=== PATIENT | female | born 1960 | race Caucasian/White ===

== ENCOUNTER 2019-05-21 14:39 | Emergency (ER) | payer OTHER ==
[~2019-05-21] VITALS: Ht 157.5 cm; Wt 65.8 kg
[~2019-05-21 14:39] MED LIST: ADULT LOW DOSE81 MG; FLEXERIL PO; HYDROCODON-ACE1 EAC7 PO; LIPITOR20 MG; PROZAC 20 MG20 M1 PO; SAVELLA50 MG PO; TOPAMAX100 MG PO
[2019-05-21] MEDS ORDERED: LEVO-T75 MCG PO (14:47)
[2019-05-21] MEDS ORDERED: VITAMIN B-1100 M2 PO (14:48)
[2019-05-21] MEDS ORDERED: SIMVASTATIN40 MG PO (14:48)
[2019-05-21] MEDS ORDERED: PROBIOTIC1 EAC2 PO (14:49)
[2019-05-21] MEDS ORDERED: GLUCOSAMINE &1 EACH PO (14:49)
== END 2019-05-21 15:17 | disposition home or self-care (01) ==
LOC: M.ERS 14:39
DX: S01.81XA Laceration without foreign body of other part of head, initial encounter (principal); M79.7 Fibromyalgia; E78.00 Pure hypercholesterolemia, unspecified; F32.9 Major depressive disorder, single episode, unspecified; Z98.890 Other specified postprocedural states; Z90.710 Acquired absence of both cervix and uterus